=== PATIENT | female | born 1985 | race African-American/Black ===

== ENCOUNTER 2016-07-29 06:36 | Emergency (ER) | payer BC, MEDICAID ==
[~2016-07-29] VITALS: Ht 160 cm; Wt 78.6 kg
[2016-07-29 06:51] VITALS: BP 120/80; PULSE 103; RESP 18; TEMP 98.7; O2SAT 96
[2016-07-29] MEDS ORDERED: OSEL75 PO (07:35)
--- NOTE | 2016-07-29 07:35 | PD ---
HPI Chief Complaint: Cold / Flu Symptoms Time Seen by Provider: 07:05 Travel History International Travel<30 days: No Contact w/Intl Traveler<30days: No Traveled to known affect area: No History of Present Illness HPI So 31-year-old woman presents emergency Department with one day of cough congestion fevers chills myalgias and headache. No known sick contacts. No nausea vomiting. Had a fever 102.3 last night. Took some Tylenol and is feeling improved at this point. History Past Medical History Medical History: Denies Significant Hx Influenza Vaccination: No LMP: 07/22/16 : 3 Para: 1 Social History Alcohol Use: Yes (OCC) Tobacco Use: No Allergies-Medications (Allergen,Severity, Reaction): Coded Allergies: No Known Allergies (Verified , 07/29/16) Reported Meds & Prescriptions Reported Meds & Active Scripts Active Tamiflu (Oseltamivir Phosphate) 75 Mg Cap 75 Mg PO BID 5 Days Review of Systems Except as stated in HPI: all other systems reviewed are Neg Physical Exam Narrative GENERAL: Well-appearing 31-year-old woman, no acute distress. SKIN: Warm and dry. HEAD: Atraumatic. Normocephalic. EYES: Pupils equal and round. No scleral icterus. No injection or drainage. ENT: No nasal bleeding or discharge. Mucous membranes pink and moist. Throat is normal. TMs normal. NECK: Trachea midline. No JVD. No adenopathy. CARDIOVASCULAR: Regular rate and rhythm. No murmur appreciated. RESPIRATORY: No accessory muscle use. Clear to auscultation. Breath sounds equal bilaterally. GASTROINTESTINAL: Abdomen soft, non-tender, nondistended. Hepatic and splenic margins not palpable. MUSCULOSKELETAL: No obvious deformities. No clubbing. No cyanosis. No edema. NEUROLOGICAL: Awake and alert. No obvious cranial nerve deficits. Motor grossly within normal limits. Normal speech. Data Data Last Documented VS Vital Signs Date Time Temp Pulse Resp B/P Pulse Ox O2 Delivery O2 Flow Rate FiO2 07/29/16 06:51 98.7 103 18 120/80 96 MDM Medical Decision Making Medical Screen Exam Complete: Yes Emergency Medical Condition: Yes Differential Diagnosis Influenza, pneumonia, bronchitis, other Narrative Course Medical decision making Is a 31-year-old woman presents emergency department for influenza-like symptoms. Multiple cases of influenza a recently. Recommend supportive treatment. Diagnosis Primary Impression: Influenza-like illness Additional Instructions: Take Tamiflu as prescribed. Take acetaminophen or ibuprofen as a for fever or body aches. You can return to work after you have had no fever for 24 hours. Drink plenty of fluids to stay well-hydrated. Follow-up with your primary doctor if you are not completely well in 7-10 days. Return to the emergency department for any worsening chest pain, trouble breathing, or any other new or worsening symptoms. Med/Other Pt SpecificInfo: Prescription(s) given Scripts Oseltamivir (Tamiflu)75 Mg Cap75 Mg PO BID 5 Days Ref 0 Prov:Gregory Nuñez MD 07/29/16 Disposition: 01 DISCHARGE HOME Condition: Stable Gregory Nuñez MD Jul 29, 2016 07:35
== END 2016-07-29 07:44 | disposition home or self-care (01) ==
LOC: PHED 06:36
DX: J98.8 Other specified respiratory disorders (principal)
CPT/HCPCS: 99283

== ENCOUNTER 2016-08-25 19:25 | Emergency (ER) | payer BC ==
[~2016-08-25 19:25] MED LIST: OSEL75 PO
[2016-08-25 19:26] VITALS: BP 126/76; PULSE 79; RESP 16; TEMP 97.9; O2SAT 97
[2016-08-25] MEDS ORDERED: PENI500T PO (20:25)
--- NOTE | 2016-08-25 20:27 | PD ---
HPI Chief Complaint: ENT Complaint Time Seen by Provider: 20:25 Travel History International Travel<30 days: No Contact w/Intl Traveler<30days: No Traveled to known affect area: No History of Present Illness HPI 31-year-old black female presents to emergency department with a 2-3 day history of sore throat, left ear pain and general malaise. She has had subjective chills but no documented fever. She denies any cough, congestion, shortness of breath, wheezing, nausea, vomiting, diarrhea, dysuria, frequency or rashes. She states the symptoms are moderate. Worse with swallowing. No palliative activity. PFSH Past Medical History Hx Anticoagulant Therapy: No Asthma: Yes (CHILDHOOD) Cardiovascular Problems: No Chemotherapy: No Cerebrovascular Accident: No Diabetes: No Diminished Hearing: No Respiratory: No Immunizations Current: No Tetanus Vaccination: < 5 Years ?: Not : 3 Para: 1 Miscarriage: 1 : 1 Ectopic : Yes Past Surgical History Gynecologic Surgery: Yes (EPTOPIC) Hysterectomy: No Tonsillectomy: Yes Social History Alcohol Use: Yes (OCC) Tobacco Use: No Substance Use: No Allergies-Medications (Allergen,Severity, Reaction): Coded Allergies: No Known Allergies (Verified , 08/25/16) Reported Meds & Prescriptions Reported Meds & Active Scripts Active No Active Prescriptions or Reported Medications Review of Systems Except as stated in HPI: all other systems reviewed are Neg Physical Exam Narrative GENERAL: Well-developed, well-nourished in no acute distress. Nontoxic appearing. HEAD: Normocephalic, atraumatic. EYES: Pupils equal round and reactive. Extraocular motions intact. No scleral icterus. No injection or drainage. ENT: TMs clear without erythema. The external auditory canals clear. Nose: clear . Posterior pharynx is pink and moist. No tonsillar edema or exudate. Uvula midline. Airway patent. NECK: Trachea midline.Supple, nontender, moves head freely. No central bony tenderness or spasm. CARDIOVASCULAR: Regular rate and rhythm without murmurs, gallops, or rubs. RESPIRATORY: Clear to auscultation. Breath sounds equal bilaterally. No wheezes , rales, or rhonchi. GASTROINTESTINAL: Abdomen soft, non-tender, nondistended. No hepato-splenomegaly , or palpable masses. No guarding. EXTREMITIES: No clubbing, cyanosis, or edema. No joint tenderness, effusion, or edema noted. BACK: Nontender without deformity or crepitance. No flank tenderness. Data Data Last Documented VS Vital Signs Date Time Temp Pulse Resp B/P Pulse Ox O2 Delivery O2 Flow Rate FiO2 08/25/16 19:26 97.9 79 16 126/76 97 Room Air Orders Amoxicillin (Trimox) (08/25/16 20:30) MDM Medical Decision Making Medical Screen Exam Complete: Yes Emergency Medical Condition: Yes Medical Record Reviewed: Yes Differential Diagnosis MDM: High Differential diagnoses: Strep throat, viral pharyngitis, mono, Narrative Course Patient's given Amoxil 500 mg by mouth. This is acute pharyngitis Diagnosis Primary Impression: Acute pharyngitis Qualified Code: J02.9 - Acute pharyngitis, unspecified etiology Patient Instructions: General Instructions Departure Forms: Tests/Procedures, Work Release Special Instructions: No work 2 days. Additional Instructions: Rest. Force fluids. Saltwater gargles. Tylenol and Advil. Chloraseptic [place] Cepastat lozenge. Pen VK. Follow-up with a primary care doctor in one week. Return to the ER if any problems. Med/Other Pt SpecificInfo: Prescription(s) given Scripts Penicillin V Potassium 500 Mg [id number] Mg PO Q12HR #20 TAB Prov:Austen Medellin MD 08/25/16 Disposition: 01 DISCHARGE HOME Condition: Chemo [place] Aug 25, 2016 20:27
[2016-08-25] MEDS ORDERED: AMOXICILLIN (TRIHYDRATE) 500 MG CAP PO ONE (20:30)
== END 2016-08-25 20:37 | disposition home or self-care (01) ==
LOC: NEPB 19:25
DX: J02.9 Acute pharyngitis, unspecified (principal); H92.02 Otalgia, left ear
CPT/HCPCS: 99283

== ENCOUNTER 2017-04-27 06:50 | Emergency (ER) | payer BC ==
[~2017-04-27] VITALS: Ht 162.6 cm; Wt 75.0 kg
[~2017-04-27 06:50] MED LIST changes: -OSEL75 PO; +PENI500T PO
[2017-04-27 06:51] VITALS: BP 136/86; PULSE 74; RESP 16; TEMP 97.9; O2SAT 98
--- NOTE | 2017-04-27 07:47 | PD ---
HPI Chief Complaint: Motorized [employer] Problem/Complaint Time Seen by Provider: 07:34 Travel History International Travel<30 days: No Contact w/Intl Traveler<30days: No Traveled to known affect area: No History of Present Illness HPI This is a 31-year-old female who presents today with complaints of urinary discomfort. Patient reports that her last day and a half she's had burning with urination. She reports a white vaginal discharge but states this is not new. The patient denies being . She denies any pelvic pain other than the burning with urination in her suprapubic area. There are no other complaints time my examination. PFSH Past Medical History Hx Anticoagulant Therapy: No Asthma: Yes (CHILDHOOD) Cardiovascular Problems: No Chemotherapy: No Cerebrovascular Accident: No Diabetes: No Diminished Hearing: No Respiratory: No Immunizations Current: No ?: : 3 Para: 1 Miscarriage: 1 : 1 Ectopic : Yes Past Surgical History Gynecologic Surgery: Yes (EPTOPIC) Hysterectomy: No Tonsillectomy: Yes Social History Alcohol Use: Yes (OCC) Tobacco Use: No Substance Use: No Allergies-Medications (Allergen,Severity, Reaction): Coded Allergies: No Known Allergies (Verified Adverse Reaction, Unknown, 04/27/17) Reported Meds & Prescriptions Reported Meds & Active Scripts Active Pyridium (Phenazopyridine HCl) 100 Mg Tab 100 Mg PO Q8H PRN Flagyl (Metronidazole) 500 Mg Tab 500 Mg PO BID 7 Days Review of Systems Except as stated in HPI: all other systems reviewed are Neg General / Constitutional: No: Fever, Chills HENT: No: Headaches, Lightheadedness Cardiovascular: No: Chest Pain or Discomfort, Palpitations Respiratory: No: Cough, Shortness of Breath Gastrointestinal: No: Nausea, Vomiting, Abdominal Pain Genitourinary: Positive: Frequency, Dysuria, No: Urgency, Pelvic Pain, Discharge, Vaginal Bleeding Musculoskeletal: No: Weakness, Pain Neurologic: No: Weakness, Headache Physical Exam Narrative GENERAL: Well-nourished, well-developed patient, in no acute respiratory distress. SKIN: Focused skin assessment warm/dry. HEAD: Normocephalic/atraumatic. EYES: No scleral icterus. No injection or drainage. NECK: Supple, trachea midline. No JVD or lymphadenopathy. CARDIOVASCULAR: Regular rate and rhythm without murmurs, gallops, or rubs. RESPIRATORY: Breath sounds equal bilaterally. No accessory muscle use. GASTROINTESTINAL: Abdomen soft, non-tender, nondistended. Patient reports subjective discomfort in her suprapubic area when she urinates. No pain on examination. GENITOURINARY: Normal external genitalia without lesions or erythema. Vaginal vault without blood . White discharge noted in the posterior vault. No cervical motion tenderness. No adnexal tenderness or masses. MUSCULOSKELETAL: No cyanosis, or edema. NEUROLOGICAL: Awake and alert. Cranial nerves II through XII intact. Motor and sensory grossly within normal limits. Five out of 5 muscle strength in all muscle groups. Normal speech. Data Data Last Documented VS Vital Signs Date Time Temp Pulse Resp B/P (MAP) Pulse Ox O2 Delivery O2 Flow Rate FiO2 04/27/17 06:51 97.9 74 16 136/86 (103) 98 Room Air Orders Orders Urinalysis - C+S If Indicated (04/27/17 07:34) Wet Prep Profile (04/27/17 08:36) Gc And Chlamydia Pcr (04/27/17 08:36) Labs Laboratory Tests Test 04/27/17 07:30 04/27/17 09:20 Urine Color YELLOW Urine Turbidity HAZY Urine pH 6.5 Urine Specific [place] 1.031 Urine Protein TRACE mg/dL Urine Glucose (UA) NEG mg/dL Urine Ketones TRACE mg/dL Urine Occult Blood TRACE Urine Nitrite NEG Urine Bilirubin NEG Urine Urobilinogen LESS THAN 2.0 MG/DL Urine Leukocyte Esterase NEG Urine RBC 2 /hpf Urine WBC 1 /hpf Urine Squamous Epithelial Cells 11 /hpf Urine Mucus FEW /lpf Microscopic Urinalysis Comment CULT NOT INDICATED Clue Cells (Wet Prep) PRESENT Vaginal Trichomonas (Wet Prep) NONE SEEN Vaginal Yeast (Wet Prep) NONE SEEN Chlamydia trachomatis DNA (PCR) NOT DETECTED Neisseria gonorrhoeae DNA (PCR) NOT DETECTED MDM Medical Decision Making Medical Screen Exam Complete: Yes Emergency Medical Condition: Yes Differential Diagnosis UTI versus pelvic infection versus ectopic Narrative Course 31-year-old female presents today with complaint of dysuria, white vaginal discharge. The patient has bacterial vaginosis. She'll be treated with Flagyl 500 twice a day 7 days. She also be given a prescription for Pyridium. I've informed her that if her GC chlamydia come back positive we will call her. Diagnosis Primary Impression: Bacterial vaginosis Additional Impression: Dysuria Med/Other Pt SpecificInfo: Prescription(s) given Scripts Phenazopyridine (Pyridium) 100 Mg Tab 100 MG PO Q8H Y for DYSURIA, #6 TAB 0 Refills Prov: Juvencio Haywood MD 04/27/17 Metronidazole (Flagyl) 500 Mg Tab 500 MG PO BID for Infection for 7 Days, #14 TAB 0 Refills Prov: Juvencio Haywood MD 04/27/17 Disposition: 01 DISCHARGE HOME Condition: Stable uJvencio Haywood MD Apr 27, 2017 07:47
[2017-04-27 08:04] LABS: BLOOD, URINE TRACE (NEG); COMMENT (UR) CULT NOT INDICATED; CULTURE IF INDICATED CULT NOT INDICATED; GLUCOSE,URINE NEG (NEG); KETONE, URINE TRACE mg/dL (NEG); MUCUS URINE FEW /lpf (OCC); NITRITE,URINE NEG (NEG); PH, URINE 6.5 (5.0-8.5); SQUAMOUS EPITHELIAL CELL URINE 11 /hpf (0-5); URINE COLOR YELLOW (YELLW/STRAW)
[2017-04-27] MEDS ORDERED: METR-1 PO (11:32)
[2017-04-27 11:56] LABS: CHLAMYDIA PCR NOT DETECTED (NOT DETECT); NEISSERIA PCR NOT DETECTED (NOT DETECT)
[2017-04-27] MEDS ORDERED: PHEN0.4T PO (12:08)
== END 2017-04-27 13:05 | disposition home or self-care (01) ==
LOC: NEPC 06:50
DX: N76.0 Acute vaginitis (principal); B96.89 Other specified bacterial agents as the cause of diseases classified elsewhere; J45.909 Unspecified asthma, uncomplicated
CPT/HCPCS: 81001; 87210; 87491; 87591; 99284